=== PATIENT | male | born 1955 | race Caucasian/White ===

== ENCOUNTER 2020-02-01 15:19 | Outpatient (REF) | payer OTHER, SELFPAY ==
--- NOTE | 2020-02-01 15:30 | XR_ITS ---
EXAMINATION: XR ABDOMEN COMPLETE CLINICAL INDICATION: Chronic constipation COMPARISON: Abdomen 10/16/2019 TECHNIQUE: 2 views of the abdomen. FINDINGS: As seen on prior exam there is distention of the rectum and distal sigmoid displacing bowel loops from the pelvis into the upper abdomen. This colonic bowel loop measures about 20 cm transverse. The size of this loop of bowel is unchanged since 10/16/2019. This loop of bowel is now impacted with a large volume of stool which is new since prior study. Lung bases are clear. No pleural effusion. No pulmonary vascular congestion. Cardiac and mediastinal contours are normal. IMPRESSION: Fecal impaction in chronically dilated distal rectum sigmoid
== END 2020-02-01 15:20 | disposition home or self-care (01) ==
LOC: HO.XRAY 15:19
PROVIDERS: PCP Internal Medicine; Visit Provider Internal Medicine
DX: K59.04 Chronic idiopathic constipation (principal); K59.39 Other megacolon
CPT/HCPCS: 74022

== ENCOUNTER 2020-02-10 13:33 | Outpatient (REF) | payer OTHER, SELFPAY ==
[2020-02-10 16:23] LABS: MANUAL DIFF FLAG NO
[2020-02-10 16:30] LABS: Basophils Percent Auto 0.2 % (0-2); Eosinophils Absolute Auto 0.1 X10*3/uL (0.0-0.4); Hematocrit 46.1 % (42-52); Hemoglobin 14.9 g/dl (14.0-18.0); Imm Gran Abs Auto 0.02 X10*3/uL (0.00-0.03); Imm Gran Pct Auto 0.2 % (0.0-0.4); Lymphocytes Absolute Auto 1.2 X10*3/uL (1.2-4.9); Lymphocytes Percent Auto 13.3 % (20-40); Mean Corpuscular HGB Conc 32.3 g/dl (31.0-36.0); Mean Corpuscular Hemoglobin 29.4 pg (27.0-33.0); Mean Corpuscular Volume 90.9 fL (80-98); Mean Platelet Volume 9.3 fL (9.4-12.4); Monocytes Absolute Auto 0.8 X10*3/uL (0.1-1.2); Monocytes Percent Auto 8.7 % (2-11); Neutrophils Absolute Auto 6.9 X10*3/uL (2.0-8.3); Neutrophils Percent Auto 76.6 % (45-73); Platelet Count 259 X10*3/uL (160-400); Red Blood Count 5.07 X10*6/uL (4.60-5.80); Red Cell Distribution Width 13.6 % (11.0-16.0)
[2020-02-10 16:39] LABS: Estimated Average Glucose 97 mg/dL
[2020-02-10 16:55] LABS: Anion Gap 12 (12-20); Blood Urea Nitrogen 9 mg/dL (9-16); Calcium 9.1 mg/dL (8.4-10.2); Carbon Dioxide 28 mmol/L (22-29); Chloride 107 mmol/L (96-108); Estimated Glomerular Filt Rate > 60; Glucose Random 80 mg/dL (60-115); Potassium 3.2 mmol/l (3.3-5.1); Sodium 144 mmol/L (135-145)
[2020-02-11 17:02] LABS: LDL Cholesterol Direct 36 mg/dL (<100)
== END 2020-02-10 13:34 | disposition home or self-care (01) ==
LOC: HO.HMGCLDS 13:33
PROVIDERS: PCP Internal Medicine; Visit Provider Internal Medicine
DX: E66.9 Obesity, unspecified (principal); K21.9 Gastro-esophageal reflux disease without esophagitis; E78.9 Disorder of lipoprotein metabolism, unspecified; E53.8 Deficiency of other specified B group vitamins; K59.01 Slow transit constipation; G70.00 Myasthenia gravis without (acute) exacerbation; I10 Essential (primary) hypertension
CPT/HCPCS: 36415; 80048; 83036; 83721; 85025

== ENCOUNTER 2020-02-20 08:31 | Outpatient (REF) | payer OTHER, SELFPAY ==
--- NOTE | 2020-02-20 | XR_ITS ---
EXAMINATION: XR CHEST CLINICAL INFORMATION: Constipation, megacolon COMPARISON: Abdominal radiographs 02/20/2020, 02/01/2020, chest radiographs 12/17/2019, 10/15/2019 TECHNIQUE: Frontal view of the chest was obtained. FINDINGS: The lungs are clear. The vascularity is normal. There is no pneumothorax or pneumomediastinum. There is no vascular congestion, infiltrate, or effusion. Tapering at the cardiac apex is consistent with areolar tissue. There is gaseous distention stomach. No free air seen beneath the diaphragms. XR/XR chest 1V IMPRESSION: 1. Lungs clear. 2. No free air beneath the diaphragm.
--- NOTE | 2020-02-20 | XR_ITS ---
EXAMINATION: XR ABDOMEN COMPLETE CLINICAL INDICATION: Constipation, megacolon COMPARISON: Abdominal radiographs 02/01/2020, 10/16/2019, 05/13/2018, CT abdomen and pelvis 10/15/2019. Chest radiograph 02/20/2020 TECHNIQUE: Supine and upright views of the abdomen are obtained for a total of 4 views. FINDINGS: Lung bases are clear. There is no free air beneath the diaphragms or pneumatosis. Again, there is gaseous distention large and small bowel. Thee deep lower quadrants and pelvis are gasless. There is no visible rectal fecal impaction or rectal distention as noted on some of prior studies. There is subtle gas filled dilated segment of bowel in the central abdomen with thin wall measuring 27 cm across. Possibility of recurrent volvulus is raised. There are surgical clips right upper quadrant consistent with prior cholecystectomy. Preliminary report called to office (Kathy) for Dr. Saucedo at 0926 hours and secure text sent at 0923 hours. XR/XR abdomen min 2V IMPRESSION: Subtle gas filled dilated segments of bowel central abdomen with thin wall 27 cm across. Possibility of recurrent volvulus is raised. Otherwise, gas-filled large and small bowel of normal caliber. No pneumatosis or free air.
== END 2020-02-20 08:32 | disposition home or self-care (01) ==
LOC: HO.HMGCX 08:31
PROVIDERS: PCP Internal Medicine; Visit Provider Internal Medicine
DX: K59.01 Slow transit constipation (principal); E78.9 Disorder of lipoprotein metabolism, unspecified; E53.8 Deficiency of other specified B group vitamins; K21.9 Gastro-esophageal reflux disease without esophagitis; G70.00 Myasthenia gravis without (acute) exacerbation; I10 Essential (primary) hypertension; E66.9 Obesity, unspecified
CPT/HCPCS: 71045; 74019

== ENCOUNTER 2020-04-06 12:26 | Outpatient (REF) | payer OTHER, SELFPAY ==
--- NOTE | 2020-04-06 | XR_ITS ---
EXAMINATION: XR CHEST CLINICAL INFORMATION: Constipation, megacolon COMPARISON: None TECHNIQUE: Frontal view of the chest was obtained. FINDINGS: There is elevated left hemidiaphragm with large amount of gas in the left colon or the stomach. The lungs are well-expanded and clear. The heart size and pulmonary vascularity is normal. No gross bony abnormality seen. XR/XR chest 1V IMPRESSION: Elevated left hemidiaphragm with a large amount gas in the stomach or the left colon.
--- NOTE | 2020-04-06 | XR_ITS ---
EXAMINATION: XR ABDOMEN COMPLETE CLINICAL INDICATION: Chronic constipation. COMPARISON: None TECHNIQUE: 2 views of the abdomen. FINDINGS: There is moderate distended colon with gas most prominent in the sigmoid colon extending to the upper abdomen. No organomegaly. There are surgical joseline in the right upper quadrant. No gross bony abnormality. The soft tissues are normal. XR/XR abdomen min 2V IMPRESSION: Large amount of gas in what appears to be sigmoid colon. Differential diagnosis includes megacolon versus tortuous sigmoid colon.
== END 2020-04-06 12:27 | disposition home or self-care (01) ==
LOC: HO.HMGCX 12:26
PROVIDERS: PCP Internal Medicine; Visit Provider Internal Medicine
DX: K59.00 Constipation, unspecified (principal); K59.39 Other megacolon
CPT/HCPCS: 71045; 74019

== ENCOUNTER → 2020-06-07 15:37 | Outpatient (BNVA) | payer OTHER, SELFPAY | PROVIDERS: PCP Internal Medicine; Visit Provider Internal Medicine ==

== ENCOUNTER → 2020-07-12 15:14 | Outpatient (BNVA) | payer OTHER, SELFPAY | PROVIDERS: PCP Internal Medicine; Visit Provider Internal Medicine ==

== ENCOUNTER 2020-07-26 10:49 | Outpatient (REF) | payer OTHER, SELFPAY ==
[2020-07-26 11:24] LABS: MANUAL DIFF FLAG NO
[2020-07-26 11:51] LABS: Basophils Percent Auto 0.3 % (0-2); Eosinophils Absolute Auto 0.2 X10*3/uL (0.0-0.4); Eosinophils Percent Auto 1.7 % (0-4); Hemoglobin 13.3 g/dl (14.0-18.0); Imm Gran Abs Auto 0.04 X10*3/uL (0.00-0.03); Imm Gran Pct Auto 0.5 % (0.0-0.4); Lymphocytes Absolute Auto 1.4 X10*3/uL (1.2-4.9); Lymphocytes Percent Auto 15.8 % (20-40); Mean Corpuscular HGB Conc 31.7 g/dl (31.0-36.0); Mean Corpuscular Volume 91.5 fL (80-98); Mean Platelet Volume 9.2 fL (9.4-12.4); Monocytes Absolute Auto 1.1 X10*3/uL (0.1-1.2); Monocytes Percent Auto 12.6 % (2-11); Neutrophils Percent Auto 69.1 % (45-73); Platelet Count 213 X10*3/uL (160-400); Red Blood Count 4.59 X10*6/uL (4.60-5.80); Red Cell Distribution Width 14.3 % (11.0-16.0); White Blood Count 8.7 X10*3/uL (4.8-10.8)
[2020-07-26 12:07] LABS: Alanine Aminotransferase 42 U/L (0-40); Albumin Level 3.9 g/dL (3.5-5.0); Alkaline Phosphatase 93 U/L (39-117); Anion Gap 11 (12-20); Aspartate Amino Transferase 33 U/L (5-37); Bilirubin Direct < 0.2 mg/dL (0.0-0.5); Bilirubin Total 0.3 mg/dL (0.0-1.0); Blood Urea Nitrogen 19 mg/dL (9-16); Calcium 8.8 mg/dL (8.4-10.2); Carbon Dioxide 29 mmol/L (22-29); Chloride 107 mmol/L (96-108); Estimated Glomerular Filt Rate > 60; Glucose Random 111 mg/dL (60-115); Potassium 3.9 mmol/L (3.3-5.1); Sodium 143 mmol/L (135-145); Total Protein 6.1 g/dL (6.5-8.0)
== END 2020-07-26 10:50 | disposition home or self-care (01) ==
LOC: HO.LAB 10:49
PROVIDERS: PCP Internal Medicine; Visit Provider Psychiatry & Neurology Neurology
DX: G70.00 Myasthenia gravis without (acute) exacerbation (principal)
CPT/HCPCS: 36415; 80048; 80076; 85025

== ENCOUNTER → 2020-08-16 09:29 | Outpatient (BNVA) | payer OTHER, SELFPAY | PROVIDERS: PCP Internal Medicine; Visit Provider Urology ==

== ENCOUNTER 2020-08-17 10:14 | Outpatient (REF) | payer OTHER, SELFPAY ==
--- NOTE | ~2020-08-17 | CT_ITS ---
CT ANGIOGRAM BRAIN, HEAD CLINICAL INFORMATION: Diplopia. COMPARISON: MRA head 03/07/2016. TECHNIQUE: Test bolus sequences followed by intravenous administration 75 mL of Omnipaque 350 intravenous contrast. Helical imaging was performed in the axial plane from the skull base to the vertex. Delayed postcontrast imaging of the head was also performed. The data was processed at the product/device technologist workstation for generation of MIP sequences. Three-dimensional volume rendered reformatted images were also generated at an offline 3-D workstation. This CT examination was performed using dose optimization techniques as appropriate, variously including the following: *Automated exposure control *Adjustment of mA and/or kV according to patient size (this includes techniques or standardized protocols for targeted exams where dose is matched to indication/reason for exam; i.e. extremities or head) *Use of iterative reconstruction technique FINDINGS: The anterior and posterior intracranial arterial circulations are normal in caliber. No significant arterial stenoses in no acute arterial occlusions intracranially. No aneurysms and no high flow vascular malformations. There is no pathologic enhancement intracranially. There is no intracranial hemorrhage, hydrocephalus, extra-axial surface collection, midline shift, or other herniation pattern. Velasquez to white matter differentiation is diffusely maintained without evidence of an evolved acute territorial infarct. The basilar cisterns are preserved. No significant soft tissue abnormality. No acute osseous abnormality. The paranasal sinuses and the mastoid air cells are well aerated. A stable small focus of fluid density within the left cavernous sinus may reflect a small incidental arachnoid cyst. CT/CT angio head IMPRESSION: No acute intracranial findings. A stable small focus of fluid density within the left cavernous sinus may reflect a small incidental arachnoid cyst.
[2020-08-17] MEDS: iohexoL 350 MG/ML 100 ML INFUS..BTL IV (11:47)
== END 2020-08-17 10:15 | disposition home or self-care (01) ==
LOC: HO.CT 10:14
PROVIDERS: Visit Provider Psychiatry & Neurology Neurology
DX: H53.2 Diplopia (principal)
CPT/HCPCS: 70496; Q9967

== ENCOUNTER 2020-09-19 10:49 | Emergency (ER) | payer OTHER, SELFPAY ==
--- NOTE | 2020-09-19 | ECG_ITS ---
Test Reason : SOB,CP Blood Pressure : / mmHG Vent. Rate : 096 BPM Atrial Rate : 096 BPM P-R Int : 168 ms QRS Dur : 102 ms QT Int : 340 ms P-R-T Axes : 034 -38 077 degrees QTc Int : 429 ms Normal sinus rhythm Left axis deviation Abnormal ECG When compared with ECG of 15-OCT-2019 12:57, QT has shortened Referred By: Generic ED Physician Electronically Signed By:LIZA JAIN
--- NOTE | ~2020-09-19 | XR_ITS ---
EXAMINATION: XR CHEST CLINICAL INFORMATION: Shortness of breath COMPARISON: 04/06/2020 TECHNIQUE: Frontal view of the chest was obtained. FINDINGS: Heart size normal. No evidence of CHF. There are some increased interstitial markings present, especially at the lung bases. This may be due to atelectasis but subtle infiltrates cannot be entirely excluded. No pleural effusions are seen. The dilated bowel seen beneath the hemidiaphragm at the time of the prior study is no longer present. Degenerative changes present in the spine. XR/XR chest 1V IMPRESSION: Subtle increase in interstitial markings as described above. Subtle infiltrates cannot be entirely excluded. When the patient is stable, an inspiratory PA and lateral chest radiograph would be of value.
[2020-09-19 10:53] VITALS: BP 120/73; BP 137/88; PULSE 104; PULSE 105; RESP 20; TEMP 38.2; O2SAT 95; O2SAT 96; BMI 20.7
[2020-09-19 11:19] VITALS: PULSE 95
--- NOTE | 2020-09-19 11:36 | ED.SOB ---
HPI - SOB/Dyspnea General Chief Complaint: Dyspnea Stated Complaint: SOB W/EXERTION Time Seen by Provider: 09/19/20 11:36 Source: patient Mode of arrival: ambulatory Limitations: no limitations History of Present Illness HPI Narrative: Patient with chills vomiting and shortness of breath. Patient has been vaccinated either with Moderna. MD elicited complaint: shortness of breath Pertinent past history: other (myastenia) Onset (ago): hour(s) Context: recent illness Timing: intermittent Severity: mild Exacerbating factors: nothing Known history of: COPD Related Data Home Medications Medication Instructions Recorded Confirmed docusate sodium 100 mg capsule 100 mg PO TID 02/10/20 06/01/20 mycophenolate mofetil 500 mg tablet 500 mg PO BID 02/10/20 06/01/20 triamcinolone acetonide 0.1 % TOPICAL 02/10/20 06/01/20 topical ointment prednisone 5 mg tablet 10 mg PO DAILY tab 06/07/20 pyridostigmine bromide 60 mg tablet 60 mg PO .6 x daily tab 06/07/20 Previous Rx's Medication Instructions Recorded meningococcal B vac,4-cmp 50 0.5 ml IM ONCE 30 Days #0.5 ml 03/29/20 mcg-50 mcg-50 mcg-25 mcg/0.5mL IM syringe pantoprazole 40 mg tablet,delayed 40 mg PO DAILY #30 tab 07/05/20 release lisinopril 20 mg tablet 20 mg PO DAILY 90 Days #90 tab 08/08/20 sildenafil 100 mg tablet 100 mg PO DAILY PRN 30 Days #30 tab 08/16/20 Allergies Allergy/AdvReac Type Severity Reaction Status Date / Time doxycycline Allergy Unknown rash Verified 07/12/20 15:29 tetrahydrozoline Allergy Unknown SWELLING Verified 07/12/20 15:29 [From [facility]] IN EYE Review of Systems Constitutional: Constitutional: Reports no additional constitutional complaints Eyes: Eyes: Reports no additional eye complaints ENT: Denies dizziness Cardiovascular: Cardiovascular: Reports no additional cardiovascular complaints Respiratory: Respiratory: Reports as per HPI Gastrointestinal: Gastrointestinal: Reports no additional gastrointestinal complaints Musculoskeletal: Musculoskeletal: Reports no additional musculoskeletal complaints Integumentary/Breasts: Skin/Breast: Denies rash Neurologic: Reports system reviewed and no additional complaints, except as documented, Denies dizziness and Denies Sensory deficit (Neuro) Psychiatric: Psychiatric: Denies anxiety PMFSH Past Medical History Medical History (Updated 09/19/20 @ 14:41 by Catrachito Mckay MD) B12 deficiency Chronic GERD Constipation by delayed colonic transit Dysphagia Hypertension, essential Lipid disorder Myasthenia gravis Obesity HENRI (obstructive sleep apnea) Surgical History No pertinent past surgical history Family History Family History Father HTN (hypertension) Mother Cancer Social History Social History Alcohol intake: never Smoked in Last 30 Days: No Use of substances other than those prescribed or required for medical reasons: No Advance Directives: Yes Advance Directives Information Provided: Yes Advance Directives on File: No Physical Exam Vital Signs: Vital Signs: Last Vital Signs Temp 98.5 F 09/19/20 14:09 Pulse 83 09/19/20 14:09 Resp 17 09/19/20 14:09 BP 123/76 09/19/20 14:09 Pulse Ox 99 09/19/20 14:09 Body Mass Index 20.7 Neuro: Sensory Exam: No Sensory deficit (Neuro) Course Course Course Narrative: work up negative for sepsis, pneumonia, COVID and UTI. Will dc home MDM - SOB/Dyspnea Lab Data Result diagrams: 09/19/20 12:25 09/19/20 12:25 Labs: Lab Results 09/19/20 09/19/20 09/19/20 Range/Units 12:17 12:25 12:25 WBC 11.7 H (4.8-10.8) X10*3/uL RBC 5.17 (4.60-5.80) X10*6/uL Hgb 14.9 (14.0-18.0) g/dl Hct 45.4 (42-52) % MCV 87.8 (80-98) fL MCH 28.8 (27.0-33.0) pg MCHC 32.8 (31.0-36.0) g/dl RDW 13.4 (11.0-16.0) % Plt Count 159 L D (160-400) X10*3/uL MPV 8.5 L (9.4-12.4) fL Immature Gran % (Auto) 0.3 (0.0-0.4) % Neut % (Auto) 85.0 H (45-73) % Lymph % (Auto) 2.8 L (20-40) % [place] % (Auto) 11.5 H (2-11) % Eos % (Auto) 0.3 (0-4) % Baso % (Auto) 0.1 (0-2) % Lymph # (Auto) 0.3 L (1.2-4.9) X10*3/uL [place] # (Auto) 1.3 H (0.1-1.2) X10*3/uL Eos # (Auto) 0.0 (0.0-0.4) X10*3/uL Baso # (Auto) 0.0 (0.0-0.2) X10*3/uL Abs Immat Gran (auto) 0.03 (0.00-0.03) X10*3/uL Absolute Neuts (auto) 9.9 H (2.0-8.3) X10*3/uL Absolute Nucleated RBC 0.000 (0.0-0.012) X10*3/uL Nucleated RBC % (auto) 0.0 (0.0-0.2) /100WBC Smear Tech's Comments VERIFIED Sodium 138 (135-145) mmol/L Potassium 3.7 (3.3-5.1) mmol/L Chloride 103 (96-108) mmol/L Carbon Dioxide 26 (22-29) mmol/L Anion Gap 13 (12-20) BUN 20 H (9-16) mg/dL Creatinine 0.81 (0.5-1.4) mg/dL Estim Creat Clear Calc 84.5 Estimated GFR > 60 Random Glucose 93 (60-115) mg/dL Lactic Acid (0.5-2.0) mmol/L Calcium 9.0 (8.4-10.2) mg/dL Urine Color Urine Appearance Urine pH (5.0-8.0) Ur Specific [place] (1.005-1.025) Urine Protein (NEG-TRACE) MG/DL Urine Glucose (UA) (NEG) MG/DL Urine Ketones (NEG) MG/DL Urine Blood (NEG) Urine Nitrite (NEG) Ur Leukocyte Esterase (NEG) Coronavirus (PCR) NEGATIVE (Negative) Influenza Type A (PCR) NEGATIVE (Negative) Influenza Type B (PCR) NEGATIVE (Negative) RSV RNA Qual (PCR) NEGATIVE (Negative) 09/19/20 09/19/20 Range/Units 12:25 14:24 WBC (4.8-10.8) X10*3/uL RBC (4.60-5.80) X10*6/uL Hgb (14.0-18.0) g/dl Hct (42-52) % MCV (80-98) fL MCH (27.0-33.0) pg MCHC (31.0-36.0) g/dl RDW (11.0-16.0) % Plt Count (160-400) X10*3/uL MPV (9.4-12.4) fL Immature Gran % (Auto) (0.0-0.4) % Neut % (Auto) (45-73) % Lymph % (Auto) (20-40) % [place] % (Auto) (2-11) % Eos % (Auto) (0-4) % Baso % (Auto) (0-2) % Lymph # (Auto) (1.2-4.9) X10*3/uL [place] # (Auto) (0.1-1.2) X10*3/uL Eos # (Auto) (0.0-0.4) X10*3/uL Baso # (Auto) (0.0-0.2) X10*3/uL Abs Immat Gran (auto) (0.00-0.03) X10*3/uL Absolute Neuts (auto) (2.0-8.3) X10*3/uL Absolute Nucleated RBC (0.0-0.012) X10*3/uL Nucleated RBC % (auto) (0.0-0.2) /100WBC Smear Tech's Comments Sodium (135-145) mmol/L Potassium (3.3-5.1) mmol/L Chloride (96-108) mmol/L Carbon Dioxide (22-29) mmol/L Anion Gap (12-20) BUN (9-16) mg/dL Creatinine (0.5-1.4) mg/dL Estim Creat Clear Calc Estimated GFR Random Glucose (60-115) mg/dL Lactic Acid 1.1 (0.5-2.0) mmol/L Calcium (8.4-10.2) mg/dL Urine Color YELLOW Urine Appearance CLEAR Urine pH 6.0 (5.0-8.0) Ur Specific [place] 1.015 (1.005-1.025) Urine Protein NEG (NEG-TRACE) MG/DL Urine Glucose (UA) NEG (NEG) MG/DL Urine Ketones 5 (NEG) MG/DL Urine Blood NEG (NEG) Urine Nitrite NEG (NEG) Ur Leukocyte Esterase NEG (NEG) Coronavirus (PCR) (Negative) Influenza Type A (PCR) (Negative) Influenza Type B (PCR) (Negative) RSV RNA Qual (PCR) (Negative) Discharge Plan Discharge Clinical Impression: Fever Qualifiers: Fever type: unspecified Qualified Code(s): R50.9 - Fever, unspecified Patient Disposition: Home, Self-Care Instructions: Fever in Adults (ED) Prescriptions: No Action meningococcal B vaccine,4-comp 50-50-50-25 mcg/0.5 mL syringe 0.5 ml IM ONCE 30 Days Qty: 0.5 RF: 0 pantoprazole 40 mg tablet,delayed release (DR/EC) 40 mg PO DAILY Qty: 30 RF: 2 lisinopril 20 mg tablet 20 mg PO DAILY 90 Days Qty: 90 RF: 2 mycophenolate mofetil 500 mg tablet 500 mg PO BID RF: 0 docusate sodium 100 mg capsule 100 mg PO TID RF: 0 triamcinolone acetonide 0.1 % ointment topical RF: 0 pyridostigmine bromide 60 mg tablet 60 mg PO .6 x daily RF: 0 prednisone 5 mg tablet 10 mg PO DAILY RF: 0 sildenafil 100 mg tablet 100 mg PO DAILY PRN (Reason: sexual activity) 30 Days Qty: 30 RF: 1 Referrals: Kerrie Hernandez MD [Primary Care Provider] - 2 days
[2020-09-19] MEDS: 0.9 % Sodium Chloride 1,000 ML 999 ML IVCONT ×2 (11:58→11:59)
[2020-09-19] MEDS: Acetaminophen 325 MG TABLET 975 MG PO (11:59)
[2020-09-19 12:41] LABS: Basophils Percent Auto 0.1 % (0-2); Eosinophils Percent Auto 0.3 % (0-4); Hematocrit 45.4 % (42-52); Hemoglobin 14.9 g/dl (14.0-18.0); Imm Gran Abs Auto 0.03 X10*3/uL (0.00-0.03); Imm Gran Pct Auto 0.3 % (0.0-0.4); Lymphocytes Absolute Auto 0.3 X10*3/uL (1.2-4.9); Lymphocytes Percent Auto 2.8 % (20-40); MANUAL DIFF FLAG SCAN; Mean Corpuscular HGB Conc 32.8 g/dl (31.0-36.0); Mean Corpuscular Hemoglobin 28.8 pg (27.0-33.0); Mean Corpuscular Volume 87.8 fL (80-98); Mean Platelet Volume 8.5 fL (9.4-12.4); Monocytes Absolute Auto 1.3 X10*3/uL (0.1-1.2); Monocytes Percent Auto 11.5 % (2-11); Neutrophils Absolute Auto 9.9 X10*3/uL (2.0-8.3); Platelet Count 159 X10*3/uL (160-400); Red Blood Count 5.17 X10*6/uL (4.60-5.80); Red Cell Distribution Width 13.4 % (11.0-16.0); SCAN SMEAR FLAG 1; White Blood Count 11.7 X10*3/uL (4.8-10.8)
[2020-09-19 13:03] LABS: Lactic Acid 1.1 mmol/L (0.5-2.0)
[2020-09-19 13:05] LABS: SLIDE REVIEW VERIFIED
[2020-09-19 13:07] LABS: Anion Gap 13 (12-20); Blood Urea Nitrogen 20 mg/dL (9-16); Carbon Dioxide 26 mmol/L (22-29); Chloride 103 mmol/L (96-108); Creatinine Clr Calc Pharmacy 84.5; Estimated Glomerular Filt Rate > 60; Glucose Random 93 mg/dL (60-115); Potassium 3.7 mmol/L (3.3-5.1); Sodium 138 mmol/L (135-145)
[2020-09-19 13:09] LABS: Influenza A PCR NEGATIVE (Negative); Influenza B PCR NEGATIVE (Negative); Resp Syncy Virus RNA Qual PCR NEGATIVE (Negative); SARS COV2 PCR INHOUSE NEGATIVE (Negative)
[2020-09-19 14:09] VITALS: BP 123/76; PULSE 83; RESP 17; TEMP 36.9; O2SAT 99
[2020-09-19 14:30] LABS: Appearance Urine CLEAR; Color Urine YELLOW; Glucose Urine UA NEG (NEG); Leukocyte Esterase Urine NEG (NEG); Nitrite Urine NEG (NEG); Specific Gravity - Urine 1.015 (1.005-1.025); Urine Blood NEG (NEG); Urine Ketones 5 MG/DL (NEG); Urine Protein NEG (NEG-TRACE)
== END 2020-09-19 14:53 | disposition home or self-care (01) ==
PROVIDERS: Emergency Provider Emergency Medicine; PCP Internal Medicine
DX: R06.00 Dyspnea, unspecified (principal); R50.9 Fever, unspecified; Z79.899 Other long term (current) drug therapy; Z20.822 Contact with and (suspected) exposure to COVID-19
CPT/HCPCS: 0241U; 36415; 71045; 80048; 81003; 83605; 85025; 87040; 93005; 99285

== ENCOUNTER 2020-12-18 08:22 | Outpatient (REF) | payer MEDICARE, SELFPAY ==
--- NOTE | ~2020-12-18 | CT_ITS ---
EXAMINATION: CT CHEST WITHOUT CONTRAST CLINICAL INFORMATION: Myasthenia gravis. COMPARISON: 10/17/[address] scan. TECHNIQUE: Multidetector volumetric CT imaging of the chest was done. Axial MIP volume rendering provided. Sagittal and coronal reformatted images were obtained. This CT examination was performed using dose optimization techniques as appropriate, variously including the following: *Automated exposure control *Adjustment of mA and/or kV according to patient size (this includes techniques or standardized protocols for targeted exams where dose is matched to indication/reason for exam; i.e. extremities or head) *Use of iterative reconstruction technique DLP: 319 mGy-cm FINDINGS: LUNGS/PLEURA/AIRWAYS: Scattered small groundglass opacities are seen predominantly in the left lower lobe in the superior and posterior segments. No significant/new pulmonary nodules are seen. Mild linear atelectasis versus scarring is seen in the lower lobes. There are no pleural effusions. The airways are patent. MEDIASTINUM: The thyroid gland is unremarkable. The anterior mediastinum is unremarkable. The thoracic aorta shows minimal atherosclerosis. Minimal coronary artery calcifications are seen. No pericardial effusion. Small calcified mediastinal and hilar lymph nodes are again seen without significant change. AXILLA: No lymphadenopathy. UPPER ABDOMEN: Fluid attenuation cyst in the superior aspect of the left lobe without significant change measuring 1.6 cm (image 45, series 3). OSSEOUS STRUCTURES: Increased thoracic kyphosis and mild to moderate multilevel degenerative changes in the thoracic spine without suspicious abnormality. CT/CT chest wo con IMPRESSION: 1. Overall interval decrease in previously seen groundglass opacities with mild residual opacity seen in the left lower lobe as detailed above. These findings remain nonspecific, but the interval improvement favors a benign infectious/inflammatory process. If the patient experiences acute symptoms, short-term imaging follow-up with chest radiographs is recommended as clinically indicated. 2. No abnormal thymic tissue/mediastinal mass. 3. Small calcified mediastinal/hilar lymph nodes without significant change most consistent with old granulomatous disease such as sarcoidosis.
== END 2020-12-18 08:23 | disposition home or self-care (01) ==
LOC: HO.CT 08:22
PROVIDERS: PCP Internal Medicine; Visit Provider Psychiatry & Neurology Neurology
DX: G70.00 Myasthenia gravis without (acute) exacerbation (principal)
CPT/HCPCS: 71250

== ENCOUNTER 2021-01-18 07:43 | Outpatient (REF) | payer MEDICARE, SELFPAY ==
[2021-01-18 11:25] LABS: MANUAL DIFF FLAG NO
[2021-01-18 11:35] LABS: Basophils Percent Auto 0.3 % (0-2); Eosinophils Absolute Auto 0.1 X10*3/uL (0.0-0.4); Hematocrit 46.7 % (42-52); Hemoglobin 14.7 g/dl (14.0-18.0); Imm Gran Abs Auto 0.03 X10*3/uL (0.00-0.03); Imm Gran Pct Auto 0.4 % (0.0-0.4); Lymphocytes Absolute Auto 1.2 X10*3/uL (1.2-4.9); Lymphocytes Percent Auto 17.4 % (20-40); Mean Corpuscular HGB Conc 31.5 g/dl (31.0-36.0); Mean Corpuscular Hemoglobin 28.4 pg (27.0-33.0); Mean Corpuscular Volume 90.3 fL (80-98); Mean Platelet Volume 9.8 fL (9.4-12.4); Monocytes Absolute Auto 0.8 X10*3/uL (0.1-1.2); Monocytes Percent Auto 11.8 % (2-11); Neutrophils Absolute Auto 4.8 X10*3/uL (2.0-8.3); Neutrophils Percent Auto 68.1 % (45-73); Platelet Count 234 X10*3/uL (160-400); Red Blood Count 5.17 X10*6/uL (4.60-5.80); Red Cell Distribution Width 13.6 % (11.0-16.0); White Blood Count 7.1 X10*3/uL (4.8-10.8)
[2021-01-18 11:47] LABS: Estimated Average Glucose 103 mg/dL; Hemoglobin A1c % 5.2 %
[2021-01-18 11:59] LABS: Alanine Aminotransferase 18 U/L (0-40); Albumin Level 4.2 g/dL (3.5-5.0); Alkaline Phosphatase 84 U/L (39-117); Anion Gap 11 (12-20); Aspartate Amino Transferase 21 U/L (5-37); Bilirubin Direct 0.2 mg/dL (0.0-0.5); Bilirubin Total 0.6 mg/dL (0.0-1.0); Blood Urea Nitrogen 16 mg/dL (9-16); Calcium 9.4 mg/dL (8.4-10.2); Carbon Dioxide 30 mmol/L (22-29); Chloride 105 mmol/L (96-108); Estimated Glomerular Filt Rate > 60; Glucose Random 104 mg/dL (60-115); Potassium 4.1 mmol/L (3.3-5.1); Sodium 142 mmol/L (135-145)
[2021-01-18 12:10] LABS: TSH reflex Free T4 2.01 uIU/mL (0.32-4.0)
[2021-01-18 12:27] LABS: Vitamin B12 149 pg/mL (200-900)
[2021-01-18 12:59] LABS: Prostate Specific Antigen 7.32 ng/mL (<0.05-4.0)
[2021-01-20 03:02] LABS: LDL Cholesterol Direct 150 mg/dL (<100)
== END 2021-01-18 07:44 | disposition home or self-care (01) ==
LOC: HO.HMGCLDS 07:43
PROVIDERS: PCP Internal Medicine; Visit Provider Urology
DX: Z12.5 Encounter for screening for malignant neoplasm of prostate (principal); I10 Essential (primary) hypertension; E53.8 Deficiency of other specified B group vitamins; E78.9 Disorder of lipoprotein metabolism, unspecified; E66.01 Morbid (severe) obesity due to excess calories; N13.8 Other obstructive and reflux uropathy; N40.1 Benign prostatic hyperplasia with lower urinary tract symptoms; N52.9 Male erectile dysfunction, unspecified
CPT/HCPCS: 36415; 80048; 80076; 82607; 83036; 83721; 84153; 84443; 85025

== ENCOUNTER → 2021-01-22 08:30 | Outpatient (BNVA) | payer MEDICARE, SELFPAY | PROVIDERS: PCP Internal Medicine; Visit Provider Urology | DX: R97.20 Elevated prostate specific antigen [PSA] (principal) | CPT/HCPCS: Q3014 ==

== ENCOUNTER 2021-03-07 08:39 | Outpatient (REF) | payer MEDICARE, SELFPAY ==
[2021-03-07 11:16] LABS: MANUAL DIFF FLAG NO
[2021-03-07 11:24] LABS: Basophils Percent Auto 0.5 % (0-2); Eosinophils Absolute Auto 0.3 X10*3/uL (0.0-0.4); Eosinophils Percent Auto 5.5 % (0-4); Hematocrit 45.2 % (42.0-52.0); Hemoglobin 14.5 g/dl (14.0-18.0); Imm Gran Abs Auto 0.02 X10*3/uL (0.00-0.03); Imm Gran Pct Auto 0.3 % (0.0-0.4); Lymphocytes Absolute Auto 1.4 X10*3/uL (1.2-4.9); Lymphocytes Percent Auto 23.6 % (20-40); Mean Corpuscular HGB Conc 32.1 g/dl (31.0-36.0); Mean Corpuscular Hemoglobin 28.5 pg (27.0-33.0); Mean Platelet Volume 9.4 fL (9.4-12.4); Monocytes Absolute Auto 0.7 X10*3/uL (0.1-1.2); Monocytes Percent Auto 11.7 % (2-11); Neutrophils Absolute Auto 3.5 x10*3/uL (2.0-8.3); Neutrophils Percent Auto 58.4 % (45-73); Platelet Count 207 X10*3/uL (160-400); Red Blood Count 5.08 X10*6/uL (4.60-5.80); Red Cell Distribution Width 13.8 % (11.0-16.0)
[2021-03-07 11:53] LABS: PSA,Total (Free>4and<10) 7.32 ng/mL (0.00-4.00)
[2021-03-07 12:00] LABS: Alanine Aminotransferase 23 U/L (0-40); Albumin Level 4.1 g/dL (3.5-5.0); Alkaline Phosphatase 79 U/L (39-117); Anion Gap 15 (12-20); Aspartate Amino Transferase 23 U/L (5-37); Bilirubin Total 0.8 mg/dL (0.0-1.0); Blood Urea Nitrogen 14 mg/dL (9-16); Calcium 9.4 mg/dL (8.4-10.2); Carbon Dioxide 26 mmol/L (22-29); Chloride 105 mmol/L (96-108); Estimated Glomerular Filt Rate > 60; Glucose Random 95 mg/dL (60-115); Potassium 3.5 mmol/L (3.3-5.1); Sodium 142 mmol/L (135-145); Total Protein 6.8 g/dL (6.5-8.0)
[2021-03-07 12:41] LABS: Vitamin B12 285 pg/mL (200-900)
[2021-03-08 13:50] LABS: Free Prostate Spec Ag 0.5 ng/mL; Percent Free Prostate Spec Ag 7 % (calc) (>25); Prostate Specific Ag Total 6.7 ng/mL (< OR = 4.0)
== END 2021-03-07 08:40 | disposition home or self-care (01) ==
LOC: HO.HMGCLDS 08:39
PROVIDERS: PCP Internal Medicine; Visit Provider Urology
DX: Z12.5 Encounter for screening for malignant neoplasm of prostate (principal); E66.01 Morbid (severe) obesity due to excess calories; E78.9 Disorder of lipoprotein metabolism, unspecified; I10 Essential (primary) hypertension; K21.9 Gastro-esophageal reflux disease without esophagitis; R97.20 Elevated prostate specific antigen [PSA]; E53.8 Deficiency of other specified B group vitamins
CPT/HCPCS: 36415; 80053; 82607; 84153; 84154; 85025

== ENCOUNTER → 2021-03-20 14:30 | Outpatient (BNVA) | payer MEDICARE, SELFPAY | PROVIDERS: PCP Internal Medicine; Visit Provider Urology | DX: Z13.89 Encounter for screening for other disorder (principal) | CPT/HCPCS: Q3014 ==

== ENCOUNTER 2021-04-05 11:23 | Outpatient (REF) | payer MEDICARE, SELFPAY ==
[2021-04-05 11:40] VITALS: BMI 35.2
[2021-04-05 11:41] VITALS: BP 144/87; PULSE 86; RESP 18; TEMP 37.2; O2SAT 96
--- NOTE | 2021-04-05 12:30 | W.PM.OPN ---
Operative Note Operative Note Date of Service: 04/05/21 Narrative: Preoperative diagnosis: Elevated PSA Postoperative diagnosis: Elevated PSA Procedure: 1. transrectal ultrasound measurement of prostate 2. transrectal ultrasound-guided pudendal nerve block 3. transrectal ultrasound-guided prostate biopsy 12 core Surgeon: Dr. Prashanth Avila Anesthetic: Local Indications for procedure: Elevated PSA Procedure: After informed consent was verified, the patient was brought into the procedure area and lay left-hand side down on the table. Patient identity confirmed. Perioperative antibiotics confirmed. Iodine 10cc with Gel was placed per rectum Ultrasound probe was placed per rectum The prostate was measured in 3 dimensions Total volume equals 46 gm There were no cystic structures and no calcifications noted and the prostate was homogeneous in nature A ultrasound-guided pudendal nerve block was performed using 10 cc of 1% lidocaine. 8 cc was placed at the base and 2 cc of the apex. A 12 core biopsy was performed with 6 cores each side. Two cores were taken at the apex, mid and base. Cores were spaced between lateral and medial. He tolerated the procedure well. Was able to ambulate to bathroom after 5 minutes. Printed instructions regarding antibiotic use and common side effects such as low-grade temperature and bleeding were given Pathology: 12 core prostate biopsy.
[2021-04-05 12:32] VITALS: BP 124/91; PULSE 77; RESP 18; O2SAT 98
== END 2021-04-05 11:24 | disposition home or self-care (01) ==
LOC: HO.MS 11:23
PROVIDERS: PCP Internal Medicine; Visit Provider Urology
PROC: (CPT 55700; principal; 2021-04-05 12:00)
DX: C61 Malignant neoplasm of prostate (principal); R97.20 Elevated prostate specific antigen [PSA]
CPT/HCPCS: 55700; 76942; 88305; 88344

== ENCOUNTER → 2021-04-12 08:27 | Outpatient (BNVA) | payer MEDICARE, SELFPAY | PROVIDERS: PCP Internal Medicine; Visit Provider Urology | DX: C61 Malignant neoplasm of prostate (principal) | CPT/HCPCS: Q3014 ==

== ENCOUNTER 2021-04-18 12:50 | Outpatient (REF) | payer MEDICARE, SELFPAY ==
--- NOTE | ~2021-04-18 | CT_ITS ---
EXAMINATION: CT PELVIS WITHOUT CONTRAST CLINICAL INFORMATION: Malignant neoplasm of prostate. COMPARISON: CT abdomen pelvis 10/15/2019 as well as exams dating back to 05/11/2018 TECHNIQUE: Helical scanning was performed with submillimeter collimation through the pelvis. Sagittal and coronal multiplanar 2-D reconstructions were obtained. This CT examination was performed using dose optimization techniques as appropriate, variously including the following: *Automated exposure control *Adjustment of mA and/or kV according to patient size (this includes techniques or standardized protocols for targeted exams where dose is matched to indication/reason for exam; i.e. extremities or head) *Use of iterative reconstruction technique DLP: 974 mGy-cm FINDINGS: PELVIS: Again seen is marked dilatation of the rectosigmoid with stool, slightly improved when compared to the 2019 exam. Maximal dimension of sigmoid loop has decreased from just under 20 cm to 12 cm. Ovoid fat area with calcification adjacent to right colon most likely represents an old torsed epiploic appendage (2:18). No pericolonic inflammatory change to suggest stercoral colitis. A tiny periumbilical hernia is seen containing only fat. No groin hernias are seen. Prostate and seminal vesicles appear normal. The bladder is only partially distended and poorly assessed. It is compressed by the distended rectosigmoid. No ascites is present. Some calcifications are present in the prostate. Some streaky changes are seen around the seminal vesicles and prostate most likely secondary to recent biopsy. No lymphadenopathy is seen. Degenerative changes present at L4-L5 and L5-S1. A sclerotic and lytic lesion is present in the proximal left femoral metaphysis measuring 3.8 x 2.5 x 2.8 cm. This is completely unchanged when compared to studies dating back to 2018. Differential diagnosis would include entities such as fibrodysplasia or fibrous cortical defect, enchondroma, nonossifying fibroma. A metastatic lesion would seem to be less likely given stability. A bone scan may be useful. CT/CT pelvis wo con IMPRESSION: 1. Rectal distention appears improved when compared to prior study. 2. No evidence of pelvic adenopathy. 3. Streaky changes around prostate and seminal vesicles most likely secondary to recent biopsies. 4. Lytic/sclerotic lesion left femur is stable and unchanged. See discussion above.
== END 2021-04-18 12:51 | disposition home or self-care (01) ==
LOC: HO.CT 12:50
PROVIDERS: Visit Provider Urology
DX: C61 Malignant neoplasm of prostate (principal)
CPT/HCPCS: 72192

== ENCOUNTER → 2021-05-01 10:15 | Outpatient (REF) | payer MEDICARE, SELFPAY ==
--- NOTE | ~2021-05-01 | NM_ITS ---
EXAMINATION: NM BONE SCAN OF THE WHOLE BODY CLINICAL INFORMATION: Malignant neoplasm of prostate. COMPARISON: No previous bone scan is available for comparison. Radiographs of the chest dated 09/19/2020 is a most recent radiograph available for comparison. CT scan of the pelvis dated 04/18/[address] scan of the chest dated 12/18/2020 are available for comparison. TECHNIQUE: Multiple gamma scintillation camera images of the whole body were performed 2.5 hours following the intravenous administration of 40 mCi Tc-99m MDP. FINDINGS: In the head, no significant abnormalities are present. In the thoracic cage and upper extremities, there is mildly increased activity in the acromioclavicular and sternoclavicular joints bilaterally and bilaterally in the glenohumeral articulations of both shoulders. There is also mildly increased activity at the costochondral junctions of both first ribs. A few mild periarticular foci are present in both hands. In the spine, there is mildly increased activity in the T6 vertebral body and in the right side of L3. There is also faint focus of increased activity in the right side of the lower cervical spine, likely in the posterior elements and probably due to facet arthropathy. In the pelvis, there is mildly increased activity in the acetabula bilaterally, most prominently in the superior lip of the right acetabulum. In the lower extremities, there is a focus of mildly increased activity adjacent to the left femoral lesser trochanter. There is moderately increased diffusely in the patellar compartments of both knees. Additional foci of mildly to moderately increased activity are present in the mid feet bilaterally, more prominently on the right and there is minimally increased activity in the first metatarsophalangeal joint regions bilaterally. No other definite bony abnormalities are noted. The urinary bladder and faint visualization of both kidneys are noted. The CT scan of the pelvis dated 04/18/2021 shows a prominent mixed sclerotic and lytic lesion in the proximal left femur that corresponds very well to the bone scan abnormality at this site described above. This is a chronic lesion that was present on the prior CT scan dated 12/28/2018 and appears unchanged on the CT images. The axial isidu-ki-ldno of this CT scan does not extend to the L3 region in the bone scan abnormality described above at this site cannot be compared. NM/NM bone scan whole body IMPRESSION: 1. A mild lesion in the proximal left femur corresponds to a chronic mixed sclerotic and lytic lesion on CT images which has been unchanged in CT appearance since 05/11/2018. Stable CT appearance and mild intensity of the abnormality on this bone scan suggests a nonaggressive lesion such is suggested on the recent CT scan that would include a fibrous cortical defect or enchondroma or fibrous dysplasia. 2. Additional abnormalities in the spine described above predominantly in the right side of L3 and in the T6 vertebral body are nonspecific and may be degenerative in etiology, but the involvement in just one half of the L3 vertebral body is suspicious for a metastasis. Further characterization of these lesions with MRI performed without and with intravenous contrast is recommended, if clinically indicated. 3. A few additional mild nonspecific abnormalities are noted as described above and these are all likely arthritic or traumatic in etiology. None of these abnormalities is strongly suspicious for metastatic disease.
== END ==
LOC: HO.NUCMED 10:15
PROVIDERS: Visit Provider Urology
DX: C61 Malignant neoplasm of prostate (principal); C79.51 Secondary malignant neoplasm of bone
CPT/HCPCS: 78306; A9503

== ENCOUNTER → 2021-05-10 14:47 | Outpatient (BNVA) | payer MEDICARE, SELFPAY | PROVIDERS: PCP Internal Medicine; Visit Provider Urology | DX: C61 Malignant neoplasm of prostate (principal); N52.9 Male erectile dysfunction, unspecified; N40.1 Benign prostatic hyperplasia with lower urinary tract symptoms; N13.8 Other obstructive and reflux uropathy; R33.8 Other retention of urine | CPT/HCPCS: 99212 ==

== ENCOUNTER 2021-05-21 08:38 | Outpatient (REF) | payer MEDICARE, SELFPAY ==
[2021-05-21 09:24] LABS: Hematocrit 45.9 % (42.0-52.0); Hemoglobin 14.8 g/dl (14.0-18.0); Mean Corpuscular HGB Conc 32.2 g/dl (31.0-36.0); Mean Corpuscular Hemoglobin 28.1 pg (27.0-33.0); Mean Corpuscular Volume 87.3 fL (80.0-98.0); Mean Platelet Volume 9.3 fL (9.4-12.4); Platelet Count 207 X10*3/uL (160-400); Red Blood Count 5.26 X10*6/uL (4.60-5.80); Red Cell Distribution Width 13.1 % (11.0-16.0); White Blood Count 5.4 X10*3/uL (4.8-10.8)
[2021-05-21 10:01] LABS: Blood Urea Nitrogen 14 mg/dL (9-16); Estimated Glomerular Filt Rate > 60
[2021-05-21 10:04] LABS: Alanine Aminotransferase 15 U/L (0-40); Albumin Level 4.2 g/dL (3.5-5.0); Alkaline Phosphatase 78 U/L (39-117); Anion Gap 12 (12-20); Aspartate Amino Transferase 21 U/L (5-37); Bilirubin Direct 0.2 mg/dL (0.0-0.5); Bilirubin Total 0.6 mg/dL (0.0-1.0); Blood Urea Nitrogen 14 mg/dL (9-16); Calcium 9.6 mg/dL (8.4-10.2); Carbon Dioxide 25 mmol/L (22-29); Chloride 108 mmol/L (96-108); Estimated Glomerular Filt Rate > 60; Glucose Random 82 mg/dL (60-115); Potassium 4.2 mmol/L (3.3-5.1); Sodium 141 mmol/L (135-145); Total Protein 7.1 g/dL (6.5-8.0)
== END 2021-05-21 08:39 | disposition home or self-care (01) ==
LOC: HO.LAB 08:38
PROVIDERS: Urology; PCP Internal Medicine; Visit Provider Psychiatry & Neurology Neurology
DX: G70.00 Myasthenia gravis without (acute) exacerbation (principal); C61 Malignant neoplasm of prostate
CPT/HCPCS: 36415; 80048; 80076; 82565; 84520; 85027

== ENCOUNTER → 2021-06-07 10:21 | Outpatient (BNVA) | payer MEDICARE, SELFPAY | PROVIDERS: PCP Internal Medicine; Visit Provider Urology | DX: C61 Malignant neoplasm of prostate (principal); R39.15 Urgency of urination | CPT/HCPCS: 52000; 96402; 99212; J9217 ==

== ENCOUNTER 2021-07-04 07:30 | Outpatient (REF) | payer MEDICARE, SELFPAY ==
[2021-07-04 07:42] VITALS: BP 134/56; PULSE 90; RESP 18; TEMP 36.8; O2SAT 96; BMI 36.9
--- NOTE | 2021-07-04 08:29 | W.PM.OPN ---
Operative Note Operative Note Date of Service: 07/04/21 Narrative: Preoperative diagnosis: Prostate cancer Postoperative diagnosis: Prostate cancer Procedure: 1. Transrectal ultrasound-guided pudendal nerve block 2. Transrectal ultrasound-guided gold seed placement Surgeon: Dr. Prashanth Avila Anesthetic: Local Indications for procedure: Prostate Cancer Procedure: After informed consent was verified, the patient was brought into the procedure area and lay left-hand side down on the table. Patient identity confirmed. Perioperative antibiotics confirmed. Gel was placed per rectum Ultrasound probe was placed per rectum A ultrasound-guided pudendal nerve block was performed using 10 cc of 1% lidocaine. 8 cc was placed at the base and 2 cc of the apex. 2 gold seed markers placed. 1 on the right, 1 on the left - visicoil product The purpose is for triangulation. He tolerated the procedure well. Was able to ambulate to bathroom after 5 minutes. Printed instructions regarding antibiotic use and common side effects such as low-grade temperature and bleeding were given
[2021-07-04 08:35] VITALS: BP 106/62; PULSE 82; RESP 18; O2SAT 96
== END 2021-07-04 07:31 | disposition home or self-care (01) ==
LOC: HO.MS 07:30
PROVIDERS: PCP Internal Medicine; Visit Provider Urology
PROC: (CPT 55876; principal; 2021-07-04 08:00)
DX: C61 Malignant neoplasm of prostate (principal)
CPT/HCPCS: 55876; 76942; A4648

== ENCOUNTER 2021-07-17 08:18 | Outpatient (REF) | payer MEDICARE, SELFPAY ==
--- NOTE | ~2021-07-17 | CT_ITS ---
EXAMINATION: CT CHEST WITHOUT CONTRAST CLINICAL INFORMATION: Myasthenia gravis. COMPARISON: None TECHNIQUE: Multidetector volumetric CT imaging of the chest was done. Axial MIP volume rendering provided. Sagittal and coronal reformatted images were obtained. This CT examination was performed using dose optimization techniques as appropriate, variously including the following: *Automated exposure control *Adjustment of mA and/or kV according to patient size (this includes techniques or standardized protocols for targeted exams where dose is matched to indication/reason for exam; i.e. extremities or head) *Use of iterative reconstruction technique DLP: 270 mGy-cm FINDINGS: NATIONAL ACCOUNT MANAGER: Well-inflated lungs. LUNGS: The lungs are well expanded and clear of acute process. There are no pulmonary nodules, mass or consolidation. There is a 1 mm punctate calcification superior segment left lower lobe axial image 208/5, right middle lobe axial image 316/5. No noncalcified pulmonary nodule seen. There is no consolidation or ground-glass density. MEDIASTINUM: The thyroid lobes are symmetrical and normal. The central trachea and the bronchi are widely patent. There is no thymic tissue seen in the anterior mediastinum. There are small shotty lymph nodes central gland calcification in the subcarinal, right pretracheal space likely chronic granulomatous disease. PLEURA: There is no pleural effusion. No pleural mass or thickening. AXILLA: No lymphadenopathy. UPPER ABDOMEN: There is a punctate 3 mm hypodensity right hepatic lobe image 47/3. Otherwise visualized liver, spleen, pancreas and bilateral adrenal glands are unremarkable. OSSEOUS STRUCTURES: There is mild ventral spondylosis. No lytic or sclerotic process seen. CT/CT chest wo con IMPRESSION: 1 mm punctate calcifications. No non calcified nodule seen. Small calcified mediastinal lymph nodes likely granulomatous disease. No mediastinal mass or lymphadenopathy. Fleischner guidelines were followed.
== END 2021-07-17 08:19 | disposition home or self-care (01) ==
LOC: HO.CT 08:18
PROVIDERS: PCP Internal Medicine; Visit Provider Psychiatry & Neurology Neurology
DX: G47.00 Insomnia, unspecified (principal)
CPT/HCPCS: 71250

== ENCOUNTER 2021-08-20 08:26 | Outpatient (REF) | payer MEDICARE, SELFPAY ==
[2021-08-20 10:29] LABS: Alanine Aminotransferase 27 U/L (0-40); Alkaline Phosphatase 77 U/L (39-117); Anion Gap 12 (12-20); Aspartate Amino Transferase 28 U/L (5-37); Bilirubin Direct 0.2 mg/dL (0.0-0.5); Bilirubin Total 0.5 mg/dL (0.0-1.0); Blood Urea Nitrogen 15 mg/dL (9-16); Calcium 9.7 mg/dL (8.4-10.2); Carbon Dioxide 30 mmol/L (22-29); Chloride 104 mmol/L (96-108); Estimated Glomerular Filt Rate > 60; Glucose Random 99 mg/dL (60-115); Potassium 4.2 mmol/L (3.3-5.1); Sodium 142 mmol/L (135-145); Total Protein 6.8 g/dL (6.5-8.0)
== END 2021-08-20 08:27 | disposition home or self-care (01) ==
LOC: HO.LAB 08:26
PROVIDERS: PCP Internal Medicine; Visit Provider Psychiatry & Neurology Neurology
DX: G70.00 Myasthenia gravis without (acute) exacerbation (principal)
CPT/HCPCS: 36415; 80048; 80076

== ENCOUNTER → 2021-10-04 09:58 | Outpatient (BNVA) | payer MEDICARE, SELFPAY | PROVIDERS: PCP Internal Medicine; Visit Provider Urology | DX: C61 Malignant neoplasm of prostate (principal); N52.9 Male erectile dysfunction, unspecified; E29.1 Testicular hypofunction; R39.15 Urgency of urination; Z92.3 Personal history of irradiation | CPT/HCPCS: 51798; 99212 ==

== ENCOUNTER 2021-12-02 10:16 | Outpatient (REF) | payer MEDICARE, SELFPAY ==
[2021-12-02 12:00] LABS: Alanine Aminotransferase 28 U/L (0-40); Albumin Level 4.1 g/dL (3.5-5.0); Alkaline Phosphatase 91 U/L (39-117); Anion Gap 14 (12-20); Aspartate Amino Transferase 28 U/L (5-37); Bilirubin Direct < 0.2 mg/dL (0.0-0.5); Bilirubin Total 0.3 mg/dL (0.0-1.0); Blood Urea Nitrogen 16 mg/dL (9-16); Calcium 9.5 mg/dL (8.4-10.2); Carbon Dioxide 26 mmol/L (22-29); Chloride 108 mmol/L (96-108); Estimated Glomerular Filt Rate > 60; Glucose Random 150 mg/dL (60-115); Potassium 3.9 mmol/L (3.3-5.1); Sodium 144 mmol/L (135-145); Total Protein 6.8 g/dL (6.5-8.0)
[2021-12-02 12:12] LABS: Prostate Specific Antigen < 0.05 ng/mL (<0.05-4.0)
[2021-12-07 01:12] LABS: Testosterone, Total 10 ng/dL (250-1100)
== END 2021-12-02 10:17 | disposition home or self-care (01) ==
LOC: HO.HMGCLDS 10:16
PROVIDERS: Psychiatry & Neurology Neurology; Absent Provider Urology; PCP Internal Medicine; Visit Provider Internal Medicine
DX: Z12.5 Encounter for screening for malignant neoplasm of prostate (principal); E29.1 Testicular hypofunction; C61 Malignant neoplasm of prostate
CPT/HCPCS: 36415; 80048; 80076; 84153; 84403

== ENCOUNTER → 2021-12-18 13:38 | Outpatient (BNVA) | payer MEDICARE, SELFPAY | PROVIDERS: PCP Internal Medicine; Visit Provider Urology | DX: C61 Malignant neoplasm of prostate (principal); N52.9 Male erectile dysfunction, unspecified | CPT/HCPCS: 96402; 99212; J9217 ==

== ENCOUNTER → 2022-03-06 15:17 | Outpatient (BNVA) | payer MEDICARE, SELFPAY | PROVIDERS: PCP Internal Medicine; Visit Provider Internal Medicine | DX: G70.00 Myasthenia gravis without (acute) exacerbation (principal); E66.09 Other obesity due to excess calories; R07.9 Chest pain, unspecified; G47.33 Obstructive sleep apnea (adult) (pediatric); R06.09 Other forms of dyspnea; Z68.37 Body mass index [BMI] 37.0-37.9, adult | CPT/HCPCS: 99212 ==

== ENCOUNTER 2022-03-13 11:14 | Outpatient (REF) | payer MEDICARE, SELFPAY ==
--- NOTE | ~2022-03-13 | XR_ITS ---
EXAMINATION: XR CHEST CLINICAL INFORMATION: Dyspnea. COMPARISON: 09/19/2020 chest radiograph. TECHNIQUE: 2 views of the chest were obtained. FINDINGS: Asymmetric opacities are seen inferiorly in the right upper lobe. Linear opacities are seen in the right middle lobe. There is mild elevation of the left hemidiaphragm. The left lung is clear. There are no pleural effusions. The heart and mediastinal structures are unremarkable. XR/XR chest 2V IMPRESSION: 1. Right upper lobe anterolateral infiltrate. 2. Right middle lobe linear atelectasis versus infiltrate as well.
== END 2022-03-13 11:15 | disposition home or self-care (01) ==
LOC: HO.HMGCX 11:14
PROVIDERS: PCP Internal Medicine; Visit Provider Internal Medicine
DX: Z13.89 Encounter for screening for other disorder (principal)
CPT/HCPCS: 71046

== ENCOUNTER 2022-03-13 12:26 | Emergency (ER) | payer MEDICARE, SELFPAY ==
--- NOTE | 2022-03-13 13:24 | PC.NURSE ---
@ 0881 DR EDMONDS REQUESTS CALL OUT TO [facility] PT TX LINE NATHALY ANSWERS AND SAYS SHE IS CLOSED TO CERTAIN TRANSFERS AND ASKS TO SPEAK WITH DR GREY EDMONDS TAKES OVER CALL RIGHT AWAY
--- NOTE | 2022-03-13 14:06 | PC.NURSE ---
@ 3736 CALL PLACED TO [facility] @ DR EDMONDS REQUEST KAI ANSWERS AND TAKES BEST CALL BACK NUMBER ([phone] GIVEN), THEN SHE STATES SHE WILL US BACK SOON FOR MORE INFO
--- NOTE | 2022-03-13 14:36 | PC.NURSE ---
@9291 CALL RECIEVED FROM [facility] OF THE [facility] FOR THIS PT SHE TAKES PT DEMOGRAPHICS THEN ASKS TO SPEAK WITH DR GREY EDMONDS SPEAKS WITH HER @ THIS TIME
--- NOTE | 2022-03-13 14:42 | PC.NURSE ---
DR KURTIS CERVANTES TEXTED @ [phone] AND CALL PLACED TO HER OFFICE EXT [phone], TO MAKE THEM AWARE OF THIS PT KAELA ANSWERS AND TAKES PT INFO @ THIS TIME
--- NOTE | 2022-03-13 15:19 | ED_ITS ---
HPI - CPR General Chief Complaint: Cardiac Arrest/CPR Stated Complaint: CARDIAC ARREST MICKYTE, FROM MD OFFICE FOR SOB Time Seen by Provider: 03/13/22 12:46 Source: EMS Mode of arrival: EMS Limitations: other (Intubated, cardiac arrest) History of Present Illness HPI narrative: 66-year-old male who presents emergency department in cardiac arrest. Information came from EMS. The patient went to an urgent care clinic complaining of shortness of breath. The patient had a syncopal episode while he was in the waiting over the urgent care clinic. When paramedics arrived the patient was awake but appear to be short of breath. According to EMS, during transport they treated the patient with Solu-Medrol and nebulizers for possible COPD or asthma exacerbation. The patient then lost consciousness. The patient had no pulse but did have a rhythm and the paramedics treated him for pulseless electrical activity (PEA). Patient was intubated with endotracheal device, he was given epinephrine IV and CPR. Related Data Home Medications Medication Instructions Recorded Confirmed docusate sodium 100 mg capsule 100 mg PO TID 02/10/20 12/18/21 pyridostigmine bromide 60 mg tablet 60 mg PO .6 x daily 06/07/20 12/18/21 prednisolone 5 mg tablet 5 mg PO DAILY 11/02/20 12/18/21 thiamine HCl (vitamin B1) 100 mg 100 mg PO DAILY 11/02/20 12/18/21 tablet mycophenolate mofetil 500 mg tablet 2,000 mg PO ONCE 03/20/21 12/18/21 Previous Rx's Medication Instructions Recorded meningococcal B vac,4-cmp 50 0.5 ml IM ONCE 30 days #0.5 mL 03/29/20 mcg-50 mcg-50 mcg-25 mcg/0.5mL IM syringe sildenafil 100 mg tablet 100 mg PO DAILY PRN sexual 08/16/20 activity 30 days #30 tabs cyanocobalamin (vitamin B-12) 1,000 mcg PO DAILY 90 days #90 tabs 01/18/21 1,000 mcg tablet finasteride 5 mg tablet 5 mg PO DAILY 90 days #90 tabs 01/24/22 pantoprazole 40 mg tablet,delayed 40 mg PO DAILY 90 days #90 tabs 02/07/22 release lisinopril 20 mg tablet 20 mg PO DAILY 90 days #90 tabs 03/09/22 Allergies Allergy/AdvReac Type Severity Reaction Status Date / Time doxycycline Allergy Unknown rash Verified 03/06/22 16:17 tetrahydrozoline Allergy Unknown SWELLING Verified 03/06/22 16:17 [From VISINE] IN EYE Review of Systems Review of Systems: Yes unobtainable due to endotracheal tube PMFSH Past Medical History Medical History B12 deficiency Chronic GERD Constipation by delayed colonic transit Dysphagia Dyspnea on exertion Hypertension, essential Lipid disorder Myasthenia gravis Obesity HENRI (obstructive sleep apnea) Surgical History No pertinent past surgical history Family History Family History Father HTN (hypertension) Mother Cancer Brother Substance abuse Social History Social History Housing: House Alcohol intake: never Patient Tobacco Use Status: Never used Tobacco e-Cigarette/Vaping Use: Never Used Advance Directives: No Current occupational status: retired Physical Exam Const: Other: Obese, male patient, patient has endotracheal device, CPR in progress HEENT: Other: Normal cephalic atraumatic Eyes: Other: Pupils were 6 mm nonreactive Neck: Other: No evidence of trauma Chest: Other: No spontaneous chest wall movement, no evidence of trauma Resp: Other: No spontaneous respirations, right sounds were difficult to auscultate with the endotracheal device in place and bag valve mask assisted respirations Cardio: Other: No heart sounds appreciated GI: Other: Obese abdomen with no bowel sounds Neuro: Other: No spontaneous movement Course Course Course Narrative: 66-year-old male who presented to local urgent care clinic for shortness of breath, he had a syncopal episode in their waiting room, woke up and was short of breath. During transport to the emergency department the patient had a cardiac arrest and was in pulseless electrical activity. On presentation to the emergency department the patient's endotracheal device was exchanged for an endotracheal tube by me. Patient had symmetric breath sounds after changing the tube but had no detectable end-tidal CO2. Patient was resuscitated using ACLS protocol and he was noted to have a trigger fibrillation. The patient was defibrillated multiple times with no change in his rhythm. He was given amiodarone 300 mg IV and then amiodarone 150 mg IV, and given multiple defibrillator shocks without changing his rhythm. He was given lidocaine 200 mg IV and then given electrical shock which converted the patient into the ED a ventricular rhythm with a rate of 60. At 1 point patient did achieve return spontaneous circulation however he continued to lose his pulse and continued ACLS treatment. Patient was also started on Levophed, epinephrine drip and dopamine to try to support his pressure when we get return of circulation but this was unsuccessful. After approximately an hour and 20 minutes of r esuscitation we were unable to sustain continue pulse of blood pressure therefore I discussed terminating the code with the family. I am concerned that the patient may have had a pulmonary embolism or massive myocardial infarction and that despite further resuscitation we would not be able to changes the underlying caused him to go into cardiac arrest. After this discussion with the family, I decided to terminate the code since the chance of the patient having anoxic brain damage was very high. The code was terminated, the endotracheal to was withdrawn, patient was taken off the IV pressors. The patient then was pronounced at 1358. I did discuss the patient's presentation with the medical hospital sales specialist, Summer Rudolph and she declined jurisdiction of this case. The medical hospital sales case #[id number]. Critical Care Time Critical Care Time Critical Care Time: Yes Total Critical Care Time: 90 Attestation: Critical Care: The patient was critically ill with a high probability of imminent or life threatening deterioration. I spent greater than 30 minutes of discontinuous time evaluating the patient,delivering critical care at the bedside, discussing and evaluating pertinent data with consultants. Critical care time does not include time spent performing separately billable procedures or teaching. Total time spent performing critical care was 90 minutes. Discharge Plan Discharge Clinical Impression: Respiratory arrest, PEA (Pulseless electrical activity), Prescriptions: No Action meningococcal B vaccine,4-comp 50-50-50-25 mcg/0.5 mL syringe 0.5 ml IM ONCE 30 Days Qty: 0.5 0RF cyanocobalamin (vitamin B-12) 1,000 mcg tablet 1,000 mcg PO DAILY 90 Days Qty: 90 0RF finasteride 5 mg tablet 5 mg PO DAILY 90 Days Qty: 90 0RF pantoprazole 40 mg tablet,delayed release (DR/EC) 40 mg PO DAILY 90 Days Qty: 90 1RF lisinopril 20 mg tablet 20 mg PO DAILY 90 Days Qty: 90 0RF docusate sodium 100 mg capsule 100 mg PO TID pyridostigmine bromide 60 mg tablet 60 mg PO .6 x daily mycophenolate mofetil 500 mg tablet 2,000 mg PO ONCE thiamine HCl (vitamin B1) 100 mg tablet 100 mg PO DAILY prednisolone 5 mg tablet 5 mg PO DAILY sildenafil 100 mg tablet 100 mg PO DAILY PRN (Reason: sexual activity) 30 Days Qty: 30 1RF Rx Instructions: administer 60 minutes before intended activity
--- NOTE | 2022-03-13 15:21 | PC.NURSE ---
PER DR EDMONDS [facility] OFFICE DECLINES THIS CASE
--- NOTE | 2022-03-13 15:37 | PC.NURSE ---
Pt BIBA as cardiac arrest, witnessed syncaple episone at [facility] where pt was being seen for SOB. EMS on scneen found pt to be in Vtach, they gave 1 Epi, then pt converted to PEA. EMS began CPR. Arrival to [facility] room 4 at 1227. CPR continued, pt achieved ROSC several times but was not able to maintain. offical time of called at 1358. see CODE blue sheets for patient care events. pt with no visible trauma, bruising or injury. family at bedside when time of called. call placed to [facility] at 1440 - spoke with Monserrat, Case # [id number]. Pt to be on hold for organ/tissue donation. - ARIELLE - phone number home - cell pt MD case # [id number]
--- NOTE | 2022-03-13 15:53 | ECG_ITS ---
Test Reason : CODE Blood Pressure : / mmHG Vent. Rate : 062 BPM Atrial Rate : 000 BPM P-R Int : 000 ms QRS Dur : 154 ms QT Int : 428 ms P-R-T Axes : 000 -85 053 degrees QTc Int : 434 ms Wide QRS rhythm Left axis deviation Right bundle branch block Inferior infarct , age undetermined Abnormal ECG When compared with ECG of 19-SEP-2020 10:54, Wide QRS rhythm has replaced Sinus rhythm Vent. rate has decreased BY 34 BPM Referred By: Russ Guajardo Electronically Signed By:JONATHON ROBISON MD
--- NOTE | 2022-03-13 16:30 | PC.NURSE ---
PT BROUGHT TO [facility] @ THIS TIME BY PT ALESHA ASCENCIO
[2022-03-14 09:09] LABS: Glucose, Whole Blood 183 mg/dL (60-115)
[2022-03-14 09:11] LABS: Glucose, Whole Blood 139 mg/dL (60-115)
== END 2022-03-13 16:33 | disposition expired ==
PROVIDERS: Emergency Provider Emergency Medicine Emergency Medical Services; PCP Internal Medicine
DX: I46.9 Cardiac arrest, cause unspecified (principal); Z79.899 Other long term (current) drug therapy
CPT/HCPCS: 31500; 71046; 82947; 93005; 96365; 96367; 96375; 96376; 99283; 99285; J0171; J0282